=== PATIENT | male | born 1990 | race African-American/Black ===

== ENCOUNTER 2016-09-22 08:01 | Emergency (ER) | payer OTHER ==
[~2016-09-22] VITALS: Ht 190.5 cm; Wt 142.9 kg
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
[2016-09-22 08:23] VITALS: BP 162/98
[2016-09-22] MEDS ORDERED: CYCLOBENZAPRINE5 M2 PO (08:43)
== END 2016-09-22 08:58 ==
LOC: ERH 08:01
DX: S39.012A Strain of muscle, fascia and tendon of lower back, initial encounter (principal); V49.40XA Driver injured in collision with unspecified motor vehicles in traffic accident, initial encounter; Y93.9 Activity, unspecified; Y92.9 Unspecified place or not applicable